=== PATIENT | male | born 1985 | race Two or more races ===

== ENCOUNTER 2019-06-04 04:53 | Emergency (ER) | payer MEDICAID ==
[~2019-06-04] VITALS: Ht 177.8 cm; Wt 88.5 kg
[~2019-06-04 04:53] MED LIST: DIPH50CA37 PO
--- NOTE | 2019-06-04 05:07 | NUR ---
DR ANN AT BEDSIDE FOR MSE
--- NOTE | 2019-06-04 05:12 | NUR ---
[facility]RAY WAS CALLED AND NOTIFIED OF ORDER
--- NOTE | 2019-06-04 05:15 | NUR ---
[facility]RAY AT BEDSIDE
--- NOTE | 2019-06-04 05:34 | NUR ---
XRAY RESULTS READ BY DR ANN AND RELAYED TO THE PATIENT
[2019-06-04] MEDS: OXYCODONE/APAP 5-325 MG TABLET PO ONE ×2 (05:37→05:43)
[2019-06-04] MEDS ORDERED: OXYCODONE/APAP 5-325 MG TABLET ONE (05:38)
--- NOTE | 2019-06-04 05:41 | NUR ---
PAIN MEDICATION ORDERED BY ER DOCTOR OFFERED TO THE PATIENT AND REFUSED
[2019-06-04 05:48] VITALS: BP 139/76
== END 2019-06-04 05:45 | disposition home or self-care (01) ==
LOC: ER 04:59
DX: M54.6 Pain in thoracic spine (principal)
CPT/HCPCS: 71045; A4663